=== PATIENT | male | born 1985 | race Caucasian/White ===

== ENCOUNTER 2016-10-12 18:14 | Emergency (ER) | payer BC, OTHER ==
[~2016-10-12] VITALS: Ht 177.8 cm; Wt 97.5 kg
[2016-10-12 18:23] VITALS: Ht 177.8 cm; Wt 97.5 kg
[2016-10-12] MEDS ORDERED: IBUP-1542 PO (18:45)
--- NOTE | 2016-10-12 18:53 | ERD ---
ER Documentation Chief Complaint Date/Time DATE: 10/12/16 TIME: 18:45 Chief Complaint upper abd pain x 1 day HPI Patient is a 30-year-old male who presents to the emergency department for "right upper bulge." Patient states he has had a "bulge in the right upper abdomen for the last year." Patient states that he feels that the bulge is increasing in appearance. Patient denies any pain currently. Patient states he is having increasing swelling to the affected area. Patient is requesting medication to help decrease the swelling. Patient denies any fevers, chills, nausea, vomiting, chest pain, shortness of breath or loss consciousness. Patient has not seen his primary care physician for this concern of his. Patient reports normal bowel movements. 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 ROS All systems reviewed and are negative except as per history of present illness. Medications Home Meds Active Scripts Ibuprofen* (Motrin*) 600 Mg Tab, 600 MG PO Q6, #30 TAB Prov:JENNIFER GRIJALVA PA-C 10/12/16 Reported Medications [None] No Conflict Check 08/08/10 Allergies Allergies: Coded Allergies: No Known Allergies (Verified Allergy, Mild, 09/05/11) PMhx/Soc History of Surgery: No Anesthesia Reaction: No Hx Neurological Disorder: No Hx Respiratory Disorders: No Hx Cardiac Disorders: No Hx Psychiatric Problems: No Hx Miscellaneous Medical Probl: No (no medical hx) Hx Alcohol Use: Yes (twice per week) Hx Substance Use: No Hx Tobacco Use: No Smoking Status: Never smoker FmHx Family History: No diabetes Physical Exam Vitals Vital Signs Date Time Temp Pulse Resp B/P Pulse Ox O2 Delivery O2 Flow Rate FiO2 10/12/16 18:23 98.3 73 20 139/67 98 Physical Exam GENERAL: Well-developed, well-nourished male. Appears in no acute distress. Speaking in full sentences HEAD: Normocephalic, atraumatic. EYES: Pupils are equally reactive bilaterally. EOMs grossly intact. No conjunctival erythema. ENT: Moist mucous membranes. No uvula deviation. No kissing tonsils. NECK: Supple. No meningismus. Normal range of motion of the neck. LUNG: Clear to auscultation bilaterally. No rhonchi, wheezing, rales or coarse breath sounds. HEART: Regular rate and rhythm. No murmurs, rubs or gallops. ABDOMEN: No scars, ecchymosis or rashes noted. Minimal bulge noted in the right upper quadrant palpated with coughing only in sitting position. Soft, nontender, and nondistended. Positive bowel sounds in all four quadrants. No rebound tenderness, no guarding. (-) McBurney's point tenderness. No CVA tenderness. BACK: No midline tenderness. EXTREMITIES: Equal pulses bilaterally. No peripheral clubbing, cyanosis or edema. No unilateral leg swelling. NEUROLOGIC: Alert and oriented. Moving all four extremities without any difficulty. Normal speech. Steady gait. SKIN: Normal color. Warm and dry. No rashes or lesions. Procedures/MDM MEDICAL DECISION MAKING: This is a 30-year-old male who presents with concerns of a right upper abdomen bulge 1 year. Patient denies any pain currently. Patient states that this bulge is increasing in appearance. Patient denies any fevers, chills, chest pain, shortness of breath, nausea, vomiting. Vital signs were reviewed. Patient is afebrile. Patient is not hypoxic. Given that the patient denied any pain, nausea, vomiting, I did not although any blood work or imaging studies are indicated at this time. At this time, patient's presentation is most consistent with abdominal hernia. I have a much lower clinical concern for acute coronary syndrome, AAA, mesenteric ischemia, lower lobe pneumonia, DKA, bowel perforation, cholecystitis, choledocholithiasis, ascending cholangitis, PUD, gastritis, GERD, strangulated hernia, incarcerated hernia. I explained to the patient at length that he will need to follow-up with his primary care physician for referral to GI specialist and/or a general surgeon. Patient will likely need a hernia repair on an outpatient basis. PRESCRIPTIONS: Ibuprofen DISCHARGE: At this time, patient is stable for discharge and outpatient management. I have instructed the patient to follow-up with his/her primary care physician in 1-2 days. I have instructed the patient to promptly return to the ER at any time for any new or worsening symptoms including increased pain, nausea, vomiting, diarrhea, fever, weakness or LOC. The patient and/or family expressed understanding of and agreement with this plan. All questions were answered. Home care instructions were provided. Departure Diagnosis: Primary Impression: Abdominal hernia Hernia type: unspecified Obstruction and gangrene presence: without obstruction or gangrene Recurrence: not specified as recurrent Qualified Code : K46.9 - Abdominal hernia without obstruction and without gangrene, recurrence not specified, unspecified hernia type Condition: Stable Patient Instructions: Hernia Repair Surgery, Hernia (Inguinal, Ventral, Umbilical) Additional Instructions: Call your primary care doctor TOMORROW for an appointment during the next 1-2 days.See the doctor sooner or return here if your condition worsens before your appointment time. Return to follow-up with a GI specialist and/or general surgeon. See referral list. Return to the emergency department for any new or worsening symptoms including severe pain, fevers, chills, nausea or vomiting. JENNIFER GRIJALVA PA-C October 12, 2016 18:53
[2016-10-12 19:13] VITALS: BP 135/87; PULSE 78; RESP 20
== END 2016-10-12 19:16 | disposition home or self-care (01) ==
LOC: FTE 18:14
DX: K46.9 Unspecified abdominal hernia without obstruction or gangrene (principal)
CPT/HCPCS: 99283